=== PATIENT | male | born 1965 | race Caucasian/White ===

== ENCOUNTER 2019-09-01 05:58 | Inpatient (IN) | payer OTHER ==
[2019-08-31 13:42] LABS: HEMATOCRIT 48.6 % (42.0-54.0); HEMOGLOBIN 17.2 g/dL (13.5-17.5); MCH 30.8 pg (26.0-34.0); MCHC 35.4 g/dL (31.0-37.0); MCV 86.9 fL (80.0-100.0); MEAN PLATELET VOLUME 8.6 fL (7.4-10.4); RBC 5.59 10x6/uL (4.20-6.10); RDW 14.2 % (11.5-14.5); WBC 8.1 10x3/uL (4.8-10.8)
[~2019-09-01] VITALS: Ht 177.8 cm; Wt 94.1 kg
[2019-09-01] VITALS (15 sets, daily range): BP systolic 106–162; BP diastolic 57–90; Ht 177.8 cm; Wt 94.1 kg
--- NOTE | ~2019-09-01 | OP ---
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 For the exposure portion, the surgeon was Dr. Randolph. For the anterior lumbar interbody fusion portion of the procedure surgeon was Vanita Bingham MD DESCRIPTION OF TECHNIQUE: After induction of general endotracheal anesthesia, the patient was positioned supine on the operating table. Dr. Randolph obtained exposure of the anterior spine at L5-S1. At this point, I entered the operating field. I incised the L5-S1 interspace with an annulus with a #11 blade. Prior to this, midline and L5-S1 interspace was identified with fluoroscopic x-ray. After this, the bony endplates were exposed with a combination of curettes. The disc material was completely removed from the disc space. Series of trials was used to advance a Amy spine SHERLY interbody cage. Separate plates were used to stabilize L5-S1 interspace with self-retaining tabs. Prior to placement of the cage and plates, a Keysha bone allograft was used to fill the cage. Following this, the anchoring plates were in good position on fluoroscopic x-ray. Meticulous hemostasis was maintained throughout the wound. The closure was then turned over to Dr. Randolph. All counts were reported as correct. Estimated blood loss was minimal for my portion of the procedure. TRANSINT:[id number] Voice Confirmation ID: [id number] DOCUMENT ID: [id number] VANITA BINGHAM MD CC: [id number] DICTATION DATE: 09/12/19 0758 DENTAL HYGIENE ADMINISTRATIVE ASSISTANT: 09/12/19 0854 DIS IN 09/03/19 [address] [place] [address]
[~2019-09-01 05:58] MED LIST: HYDROCHLOROTH12.5 M1 PO; NORVASC10 MG PO
--- NOTE | 2019-09-01 13:15 | NUR ---
PT ARRIVED IN THE UNIT. HOOKED TO ICU MONITORS. VSS. DRESSING C/D/I. WILL CONT POC.
--- NOTE | 2019-09-01 14:32 | NUR ---
SPOKE WITH QUYNH CHAPMAN FOR CLEAR LIQUID DIET. CLARIFIED. COURT RECORDER MORPHINE 2MG Q10 MINS WITH 30MG LOCKOUT Q 4 HOURS.
--- NOTE | 2019-09-01 18:00 | NUR ---
PT VSS. DENIES PAIN. WILL CONT POC.
--- NOTE | 2019-09-01 20:36 | NUR ---
PT AT BEDSIDE, BOTH DENY ANY NEEDS AT THIS TIME.
--- NOTE | 2019-09-01 22:49 | NUR ---
PT C/O NAUSEA, PRN ZOFRAN 4MG ADMINISTERED VIA SIVP.
[2019-09-02] VITALS (15 sets, daily range): BP systolic 98–139; BP diastolic 44–98
--- NOTE | 2019-09-02 00:54 | NUR ---
PT RESTING IN BED WATCHING TV IN NO APPARENT DISTRESS, VSS.
--- NOTE | 2019-09-02 08:31 | NUR ---
UP IN BED AWAKE AT THIS TIME. DENIES ANY CURRENT NEEDS. PT DENIES ANY CURRENT PAIN. VSS. PT REPOSITIONS SELF IN BED INDEPENDENTLY. WILL CONTINUE PLAN OF CARE.
--- NOTE | 2019-09-02 10:31 | NUR ---
UP IN BED AWAKE AT THIS TIME VISITING WITH . VSS. NO ACUTE DISTRESS NOTED. PT DENIES ANY NEEDS. WILL CONTINUE PLAN OF CARE.
--- NOTE | 2019-09-02 12:52 | NUR ---
PER DR BINGHAM; SALINE LOCK IV, ORDER PHYSICAL THERAPY TO COME SEE PT SO HE CAN WALK, DC SONOSCOPE OPERATOR, DC RAO, AND TRANSFER PT TO FLOOR. ALSO STATED LONG PT HAS NOT PASSED GAS WILL CONTINUE WITH CLR LIQUID DIET. VSS. NO ACUTE DISTRESS NOTED. WILL CONTINUE PLAN OF CARE.
--- NOTE | 2019-09-02 13:31 | NUR ---
RAO DCD AT THIS TIME PER ORDERS, CATHETER TIP INTACT. VSS. NO ACUTE DISTRESS NOTED. WILL CONTINUE PLAN OF CARE.
--- NOTE | 2019-09-02 14:32 | NUR ---
NOTED PT TO TRANSFER TO ROOM 2224. ATTEMPTED TO CALL REPORT, NOTED NURSE TO RECIEVE PT WILL CALL BACK SINCE IS CURRENTLY UNAVALIABLE, BUT WILL CALL BACK.
--- NOTE | 2019-09-02 15:02 | NUR ---
REPORT CALLED TO RECIEVING NURSE. WILL TRANSFER PT SHORTLY.
--- NOTE | 2019-09-02 15:39 | NUR ---
PT TRANSFERRED TO ROOM 2224 AT THIS TIME WITH ALL PERSONAL ITEMS, AT BEDSIDE. VSS. NO ACUTE DISTRESS NOTED. PT VOID BEFORE TRANSFER, 350ML TO URINAL. NO FURHTER ACTIONS.
--- NOTE | 2019-09-02 15:50 | NUR ---
PT RECIEVED FROM ICU TO ROOM 2224 AWAKE ALERT AND ORIENTED X 4. REPORTS PAIN 8/10 AT THIS TIME. PAIN MEDICATION TO BE ADMINISTERED PER MD ORDERS. SALINE LOCK TO LEFT HAND PATENT. SITE WITHOUT REDNESS OR EDEMA. INCISION TO MIDLINE LOWER ABDOMEN NOTED WITH DERMABOND INTACT. SITE WITHOUT REDNESS EDEMA OR DRAINAGE. ORIENTED TO ROOM, BED CONTROLS AND CL. DENIES FURTHER NEEDS AT THIS TIME. CL WITHIN REACH. ENCOURAGED TO CALL WITH NEEDS.
--- NOTE | 2019-09-02 19:00 | NUR ---
BEDSIDE REPORT RECEIVED AND CARE OF PT ASSUMED. PT SITTING UP IN CHAIR AT THIS TIME. GAVE COFFEE PER REQUEST. EMPTIED 600 ML OF YELLOW URINE FROM URINAL. WILL MONITOR FOR NEEDS.
--- NOTE | 2019-09-02 20:00 | NUR ---
PT AMBULATED X2 TIMES AROUND NURSES STATION WITH WALKER AND ENVIRONMENTAL FIELD OFFICE MANAGER AT SIDE.
--- NOTE | 2019-09-02 20:20 | NUR ---
HS MEDICATIONS GIVEN TO INCLUDE NORCO PO PER REQUEST FOR PAIN, PER PRN ORDER. WILL CONTINUE TO MONITOR FOR NEEDS.
[2019-09-03] VITALS: BP 134/76
--- NOTE | 2019-09-03 03:20 | NUR ---
PT AMBULATED AROUND UNIT 4 TIMES WITH WALKER.
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
[2019-09-03 04:00] VITALS: BP 126/70
[2019-09-03 07:57] VITALS: BP 128/76
[2019-09-03 09:43] VITALS: BP 115/45
[2019-09-03] MEDS ORDERED: HYDROCODON-ACE1 EA10 PO (12:50)
[2019-09-03 12:53] VITALS: BP 139/86
--- NOTE | 2019-09-03 14:51 | MORECARE ---
CASE MANAGEMENT DISCHARGE SUMMARY PATIENT: MOISE WEST UNIT: [id number] ADM DATE: 09/01/19 AGE: 54 : 67 SEX: M ROOM/BED: D.2224 AUTHOR: JUAN VALENZUELA PHYSICIAN: REFERRING PHYSICIAN: VANITA BINGHAM MD DATE OF SERVICE: 09/03/19 Discharge Plan Patient Name: MOISE WEST Facility: [facility]:[place] : 1965 Planned Disposition: Home Anticipated Discharge Date: Discharge Date: Expected LOS: Initial Reviewer: [email or web address] Initial Review Date: 09/01/2019 Generated: 09/03/19 3:50 pm DCPIA - Discharge Planning Initial Assessment Updated by [email or web address]: Flora Hernandez on 09/03/19 2:50 pm * Is the patient Alert and Oriented? Yes * How many steps to enter\exit or inside your home? * [facility] * Preadmission Environment Home with Family * ADLs Independent * Equipment Walker * List name and contact numbers for known caregivers / representatives who currently or will assist patient after discharge: [facility] - [facility] - [phone] * Verbal permission to speak to the caregivers and representatives has been obtained from the patient. Yes * Community resources currently utilized None * Additional services required to return to the preadmission environment? No * Can the patient safely return to the preadmission environment? Yes * Has this patient been hospitalized within the prior 30 days at any hospital? No Patient Name: MOISE WEST Page [id number] at 1451 All edits/amendments must be made on the electronic document DICTATION DATE: 09/03/19 1450 BUSINESS MANAGEMENT CONSULTANT: TRACY 09/03/19 1450 RPT#: [id number] DC DATE: STATUS: ADM IN [facility] [address] [place] [address] END OF REPORT
--- NOTE | 2019-09-03 14:58 | MORECARE ---
CASE MANAGEMENT DISCHARGE SUMMARY PATIENT: MOISE WEST UNIT: [id number] ADM DATE: 09/01/19 AGE: 54 : 67 SEX: M ROOM/BED: D.2224 AUTHOR: NICOLAS,DOC PHYSICIAN: REFERRING PHYSICIAN: VANITA BINGHAM MD DATE OF SERVICE: 09/03/19 Discharge Plan Patient Name: MOISE WEST Facility: [facility]:[place] : 1965 Planned Disposition: Home Anticipated Discharge Date: Discharge Date: Expected LOS: Initial Reviewer: [email or web address] Initial Review Date: 09/01/2019 Generated: 09/03/19 3:58 pm Comments DCP- Discharge Planning Updated by [email or web address]: Flora Hernandez on 09/03/19 1:[address] Patient Name: MOISE WEST Admission Status: Elective Accout number: [id number] Admission Date: 09-01-2019 : 1965 Admission Diagnosis: Attending: VANITA BINGHAM Current LOS: 2 Anticipated DC Date: Planned Disposition: Home Primary Insurance: [place] [employer] Discharge Planning Comments: CM met with patient at bedside after explaining CM role and obtaining verbal consent. Patient lives at home with his where he is independent with his care and plans to return there upon discharge. Patient feels this would be a safe discharge. CM discussed availability / needs of home health and medical equipment. Patient denies any discharge needs at this time. Patient states he will have his family drive him home upon discharge. CM will continue to follow and assist as needed with discharge planning / needs. Egg Producer: Flora Hernandez DCPIA - Discharge Planning Initial Assessment Updated by [email or web address]: Flora Hernandez on 09/03/19 2:50 pm * Is the patient Alert and Oriented? Yes * How many steps to enter\exit or inside your home? * PCP [facility] * [facility]acy [facility] * Preadmission Environment Home with Family * ADLs Independent * Equipment Walker * List name and contact numbers for known caregivers / representatives who currently or will assist patient after discharge: [facility] - [facility] - [phone] * Verbal permission to speak to the caregivers and representatives has been obtained from the patient. Yes * Community resources currently utilized None * Additional services required to return to the preadmission environment? No * Can the patient safely return to the preadmission environment? Yes * Has this patient been hospitalized within the prior 30 days at any hospital? No Last DP export: 09/03/19 1:51 pm Patient Name: MOISE WEST Page [id number] at 1458 All edits/amendments must be made on the electronic document DICTATION DATE: 09/03/191457 COMMUNITY INTEGRATION SPECIALIST: TRACY 09/03/191457 RPT#: [id number] DC DATE: STATUS: ADM IN [facility] [address] [place] [address] END OF REPORT
--- NOTE | 2019-09-05 14:24 | OP ---
PATIENT NAME: MOISE WEST MEDICAL RECORD: [id number] :67 LOCATION:D.MS August[facility]2224 ADMISSION DATE:09/01/19 SURGEON: SIERRA JACOME MD DATE OF OPERATION: 09/01/2019 This is a co-surgeon case. The patient has severe degenerative disc disease at L5-S1. I was a co-surgeon with Dr. Kenneth Solomon. I was the access surgeon. He was the neurosurgeon inserting the fusion device and performing the discectomy. I was present throughout the entire operation from the initial skin incision to the final closure. Due to the complexity of the procedure, it was necessary to have 2 attending surgeons present during the operation. I was the access surgeon. My involvement in the operation included assistance with positioning the patient and ensuring that they were properly positioned on the table. I performed a lower midline incision. Sharp dissection was carried down through skin and subcutaneous tissue as well as Armand fascia. I incised the linea alba. I incised down to the peritoneum. An extraperitoneal dissection was performed bluntly to the left. The transversalis fascia was noted and was incised. I continued my dissection. The cord structures to the left testicle were preserved. I encountered the left ureter, which was retracted for protection. I then went and dissected behind the rectum. I identified the L5-S1 disc space. I incised some of outer coat of the left common iliac vein as well as at the bifurcation of the inferior vena cava. I then positioned the retraction device with the radiolucent blades. During the operation, I had to reposition the blades several times. I utilized the bipolar cautery to cauterize the median sacral artery and vein. Once I was satisfied with the positioning and exposure, Dr. Solomon came and performed his portion of the operative procedure. After performing the discectomy and distracting the disc space and inserting the fixation device, I then went about closing the abdomen. I identified no evidence of a DVT in either common iliac vein. There were good pulses in both groins indicating no evidence of an arterial occlusion. The left ureter was undamaged during the operation. The left cord structures were undamaged during the operation. There was no bleeding. The bladder was undamaged during the operation. The midline fascia was approximated with running looped #1 PDS from the cephalad and caudad direction. The subdermis was approximated with interrupted 3-0 Vicryls. The skin was approximated with a running intracuticular 3-0 Vicryl. A Prineo occlusive wound system was then applied. The patient was then extubated and conveyed to post-anesthesia care unit where he was in stable condition. TRANSINT:[id number] Voice Confirmation ID: [id number] DOCUMENT ID: [id number] OPERATIVE REPORT [id number] MOISE WEST ROBERT MD at 1424 CC: [id number] DICTATION DATE: 09/01/19 1828 FRONT MAN: 09/02/19 0127 DIS IN 09/03/19 [facility] [address] [place] [address]
--- NOTE | 2019-09-06 06:54 | MORECARE ---
CASE MANAGEMENT DISCHARGE SUMMARY PATIENT: MOISE WEST UNIT: [id number] ADM DATE: 09/01/19 AGE: 54 : 67 SEX: M ROOM/BED: D.2224 AUTHOR: NICOLAS,DOC PHYSICIAN: REFERRING PHYSICIAN: VANITA BINGHAM MD DATE OF SERVICE: 09/06/19 Discharge Plan Patient Name: MOISE WEST Facility: [facility]:[place] : 1965 Planned Disposition: Home Anticipated Discharge Date: Discharge Date: 09/03/2019 Expected LOS: 0 Initial Reviewer: [email or web address] Initial Review Date: 09/01/2019 Generated: 09/06/19 7:53 am DCP- Discharge Planning Updated by [email or web address]: Flora Hernandez on 09/03/19 1:[address] Patient Name: MOISE WEST Admission Status: Elective Accout number: [id number] Admission Date: 09-01-2019 : 1965 Admission Diagnosis: Attending: VANITA BINGHAM Current LOS: 2 Anticipated DC Date: Planned Disposition: Home Primary Insurance: [place] [employer] Discharge Planning Comments: CM met with patient at bedside after explaining CM role and obtaining verbal consent. Patient lives at home with his where he is independent with his care and plans to return there upon discharge. Patient feels this would be a safe discharge. CM discussed availability / needs of home health and medical equipment. Patient denies any discharge needs at this time. Patient states he will have his family drive him home upon discharge. CM will continue to follow and assist as needed with discharge planning / needs. Motion Picture Cameraman: Flora Hernandez DCPIA - Discharge Planning Initial Assessment Updated by [email or web address]: Flora Hernandez on 09/03/19 2:50 pm * Is the patient Alert and Oriented? Yes * How many steps to enter\exit or inside your home? * PCP [facility] * Pharmacy [facility] * Preadmission Environment Home with Family * ADLs Independent * Equipment Walker * List name and contact numbers for known caregivers / representatives who currently or will assist patient after discharge: [facility] - [facility] - [phone] * Verbal permission to speak to the caregivers and representatives has been obtained from the patient. Yes * Community resources currently utilized None * Additional services required to return to the preadmission environment? No * Can the patient safely return to the preadmission environment? Yes * Has this patient been hospitalized within the prior 30 days at any hospital? No Last DP export: 09/03/19 1:58 pm Patient Name: MOISE WEST Page 03257 at 0654 All edits/amendments must be made on the electronic document DICTATION DATE: 09/06/19652 QUARRY SUPERVISOR DIMENSION STONE: TRACY 09/06/19652 RPT#: [id number] DC DATE:09/03/19 STATUS: DIS IN [facility] [address] [place] [address] END OF REPORT
== END 2019-09-03 15:31 | disposition home or self-care (01) | DRG 460 ==
LOC: D.OPS 05:58 → D.PAN 07:30 → D.OPS 07:30 → D.ICU 13:11 → D.OPS 13:12 → D.ICU 13:13 → D.MS 09-02 15:26
PROVIDERS: Anesthesiology; ADMIT Neurological Surgery; ATTEND Neurological Surgery
PROC: 0ST40ZZ Resection of Lumbosacral Disc, Open Approach (ICD-10-PCS; 2019-09-01)
PROC: 0SG30A0 Fusion of Lumbosacral Joint with Interbody Fusion Device, Anterior Approach, Anterior Column, Open Approach (ICD-10-PCS; principal; 2019-09-01 07:30)
DX: M54.16 Radiculopathy, lumbar region (principal); M51.36 Other intervertebral disc degeneration, lumbar region; M48.061 Spinal stenosis, lumbar region without neurogenic claudication